=== PATIENT | male | born 1945 | race Caucasian/White ===

== ENCOUNTER → 2019-05-01 | Outpatient (CLI) | payer MEDICARE ==
[2019-05-01 16:04] LABS: HGB 11.2 gm/dL (13.0-17.5); MCH 23.1 pg (25.0-35.0); MCHC 31.2 g/dL (31.0-37.0); MCV 74.2 fL (80.0-100.0); Mean Platelet Volume 7.9; Microcytosis Slight; Platelet Count 263 k/uL (150-450); RBC 4.85 m/uL (4.30-5.90); RDW 15.2 % (11.5-15.5); WBC 5.8 k/uL (3.8-10.6)
[2019-05-01 16:12] LABS: ALT 25 U/L (21-72); AST 30 U/L (17-59); African American GFR (CKD) 78 (>60 ml/min/1.73 sqM); Albumin 4.4 g/dL (3.5-5.0); Albumin/Globulin Ratio 1.5; Alkaline Phosphatase 74 U/L (38-126); Anion Gap 7 mmol/L; Blood Urea Nitrogen 15 mg/dL (9-20); Calcium 9.5 mg/dL (8.4-10.2); Carbon Dioxide 27 mmol/L (22-30); Chloride 104 mmol/L (98-107); Glucose 92 mg/dL (74-99); LDH 404 U/L (313-618); Magnesium 2.1 mg/dL (1.6-2.3); Non-African American GFR(CKD) 67 (>60 ml/min/1.73 sqM); Potassium 4.4 mmol/L (3.5-5.1); Sodium 138 mmol/L (137-145); Total Bilirubin 0.5 mg/dL (0.2-1.3); Total Protein 7.4 g/dL (6.3-8.2)
[2019-05-01 16:31] LABS: Creatine Kinase MB 2.4 ng/mL (0.0-2.4)
--- NOTE | 2019-05-01 16:36 | XR ---
EXAMINATION TYPE: XR chest 2V, XR ribs 4 views LT DATE OF EXAM: 05/01/2019 COMPARISON: Chest 09/11/2014 HISTORY: 73-year-old male with chest pain and cough, mid lateral rib pain from fall 2 weeks ago. FINDINGS: Chest: Median sternotomy wires post-CABG clips. Heart normal size. Aorta and pulmonary vasculature within no rmal limits. Mild interstitial prominence is unchanged. No consolidation or pleural effusion. Left RIBS: No displaced left rib fracture. IMPRESSION: Chronic changes without acute cardiopulmonary process. No displaced left rib fracture seen.
[2019-05-01 17:04] LABS: Troponin I 0.012 ng/mL (0.000-0.034)
== END | disposition home or self-care (01) ==
LOC: LABWHC1 15:43
PROVIDERS: ATTEND Family Medicine
DX: R07.9 Chest pain, unspecified (principal); R05 Cough
CPT/HCPCS: 36415; 71046; 80053; 82553; 83615; 83735; 84484; 85027; 85379

== ENCOUNTER → 2021-01-22 | Outpatient (CLI) | payer MEDICARE ==
--- NOTE | 2021-01-22 10:27 | XR ---
EXAMINATION TYPE: XR chest 2V DATE OF EXAM: 01/22/2021 COMPARISON: 05/01/2019 HISTORY: Shortness of breath TECHNIQUE: Frontal and lateral views of the chest are obtained. FINDINGS: Scattered senescent parenchymal changes noted. Hyperinflation compatible with COPD. No evidence for infiltrate. No evidence for atelectasis. Focal eventration left hemidiaphragm unchang ed. Heart size is stable. Mediastinal structures are stable and grossly unremarkable. No evidence for hilar prominence. Degenerative changes dorsal spine. IMPRESSION: 1. No evidence for acute pulmonary disease.
--- NOTE | 2021-01-22 10:41 | XR ---
Right shoulder HISTORY: Pain 3 views of the right shoulder. Bone mineralization is reduced. Distal acromion is downturned, arthropathy is present at the acromioc lavicular joint. There is no fracture or dislocation evident. Right lung apex as visualized is normal . Patient is post median sternotomy. impression: Acromioclavicular joint arthropathy, correlate for impingement, shoulder MRI may be of be nefit.
== END | disposition home or self-care (01) ==
LOC: RADXRMAIN 09:47
PROVIDERS: ATTEND Family Medicine
DX: R06.02 Shortness of breath (principal); M19.011 Primary osteoarthritis, right shoulder
CPT/HCPCS: 71046

== ENCOUNTER → 2021-09-16 | Outpatient (CLI) | payer MEDICARE ==
[2021-09-16 14:43] LABS: HCT 38.8 % (39.6-50.0); HGB 11.6 g/dL (13.0-17.0); MCHC 29.9 g/dL (32.0-37.0); MCV 73.5 fL (80.0-97.0); Mean Platelet Volume 12.4 fL (9.5-12.2); NRBC Per 100 WBC 0 /100 WBCS (0.0-0.0); Platelet Count 304 X 10*3/uL (140-440); RBC 5.28 X 10*6/uL (4.40-5.60); RDW 15.9 % (11.5-14.5); WBC 9.25 X 10*3/uL (4.50-10.00)
[2021-09-16 16:59] LABS: African American GFR (CKD) 75.7 (60.0-200.0); Anion Gap 13.9 mmol/L (10.00-18.00); BUN/Creat Ratio 13.27 Ratio (12.00-20.00); Blood Urea Nitrogen 14.6 mg/dL (9.0-27.0); Calcium 9.2 mg/dL (8.7-10.3); Carbon Dioxide 21.5 mmol/L (20.0-27.5); Non-African American GFR(CKD) 65.3 (60.0-200.0); Potassium 4.1 mmol/L (3.5-5.5)
== END | disposition home or self-care (01) ==
LOC: LABWHC1 08:20
PROVIDERS: ATTEND Internal Medicine Interventional Cardiology
DX: D64.9 Anemia, unspecified (principal)
CPT/HCPCS: 36415; 80048; 85027

== ENCOUNTER → 2024-04-09 | Outpatient (CLI) | payer MEDICARE ==
--- NOTE | 2024-04-09 15:21 | XR ---
EXAMINATION TYPE: XR chest 2V DATE OF EXAM: 04/09/2024 2:38 PM COMPARISON: Chest radiographs from 01/22/2021. CLINICAL INDICATION: Male, 78 years old with history of J44.1; PHH TECHNIQUE: XR chest 2V Frontal and lateral views of the chest. FINDINGS: Lungs/Pleura: There is flattening of the diaphragm with increased lucency of the lungs. No evidence o f pneumothorax, pleural effusion or focal consolidation. Pulmonary vascularity: Unremarkable. Heart/mediastinum: Cardiomediastinal silhouette is unremarkable. Musculoskeletal: No acute osseous pathology. IMPRESSION: 1. No acute cardiopulmonary disease process. 2. COPD changes. [facility], , 04/09/2024 3:19 PM
== END | disposition home or self-care (01) ==
LOC: RADXRMAIN 14:20
DX: J44.1 Chronic obstructive pulmonary disease with (acute) exacerbation (principal)
CPT/HCPCS: 71046

== ENCOUNTER → 2024-04-20 | Day surgery (SDC) | payer MEDICARE ==
[2024-04-19 10:18] VITALS: BMI 26.2
[~2024-04-20] MED LIST: ALPRAZolam 0.25 MG TAB PO PRN; ASPIRIN 325 MG TAB PO ONE; ATORVASTATIN 80 MG TAB PO ONE; NITROGLYCERIN SL TABS 0.4 MG TAB SUBLINGUAL PRN; RX INFO: IV CONTRAST WAS GIVEN 1 EACH MISC MISCELLANE PRN; SODIUM CHLORIDE 0.9% 1,000 ML IV SCH; SODIUM CHLORIDE 0.9% 1,000 ML in EMPTY BAG 1 BAG IV SCH
[2024-04-20] MEDS: ALPRAZolam 0.5 MG TAB PO PRN (06:35)
[2024-04-20] MEDS: IV FLUID CONTINUATION 1,000 ML IV ONE (06:39)
[2024-04-20 06:54] LABS: Basophils # (A) 0.1 k/uL (0-0.2); Basophils % (A) 1 %; Eosinophils # (A) 0.3 k/uL (0-0.7); Eosinophils % (A) 3 %; HCT 38.9 % (39.0-53.0); HGB 12.2 gm/dL (13.0-17.5); Hypochromasia Slight; Lymphocytes % (A) 26 %; MCH 22.7 pg (25.0-35.0); MCHC 31.3 g/dL (31.0-37.0); MCV 72.6 fL (80.0-100.0); Mean Platelet Volume 7.8; Microcytosis Moderate; Monocytes # (A) 0.5 k/uL (0-1.0); Monocytes % (A) 7 %; Neutrophils # (A) 4.7 k/uL (1.3-7.7); Neutrophils % (A) 61 %; Platelet Count 255 k/uL (150-450); RBC 5.35 m/uL (4.30-5.90); RDW 15.9 % (11.5-15.5); WBC 7.7 k/uL (3.8-10.6)
[2024-04-20 07:05] VITALS: TEMP 98.3
[2024-04-20 07:06] VITALS: RESP 18
[2024-04-20 07:23] LABS: African American GFR (CKD) 64 (>60 ml/min/1.73 sqM); Anion Gap 8 mmol/L; Blood Urea Nitrogen 15 mg/dL (9-20); Calcium 9.6 mg/dL (8.4-10.2); Carbon Dioxide 24 mmol/L (22-30); Chloride 106 mmol/L (98-107); Glucose 110 mg/dL (74-99); Non-African American GFR(CKD) 55 (>60 ml/min/1.73 sqM); Potassium 4.4 mmol/L (3.5-5.1); Sodium 138 mmol/L (137-145)
[2024-04-20] MEDS: LIDOCAINE 1% INJ 10MG/ML (20 ML MDV) SQ ONE (07:39)
[2024-04-20] MEDS: MIDAZOLAM 2 MG/2 ML VIAL IVP ONE (07:39)
[2024-04-20] MEDS: IOPAMIDOL-300 100ML BTL INJ ONE (07:56)
[2024-04-20] MEDS: HEPARIN SODIUM,PORCINE (1 ML) 2,500 UNIT in SODIUM CHLORIDE 0.9% 250 ML IRRIGATION PRN (07:57)
[2024-04-20] MEDS: HEPARIN SODIUM,PORCINE 10,000 UNIT in SODIUM CHLORIDE 0.9% 1,000 ML IRRIGATION PRN (07:57)
--- NOTE | 2024-04-20 08:19 | P.PCN ---
Date of Procedure: 04/20/24 Operative Findings: CARDIAC CATHETERIZATION PERFORMING PHYSICIAN: Teo Guerra MD, RPVI PROCEDURE PERFORMED: 1. Selective right and left coronary angiogram and MONTANO to LAD angiogram and SVG to diagonal angiogram and SVG to OM angiogram and SVG to PDA angiogram 2. Left heart catheterization 3. Ultrasound-guided access of the right common femoral artery and selective right common femoral artery angiogram INDICATION: Chest discomfort and shortness of breath concerning for unstable angina in this 78-year-old gentleman who is known to have CAD with prior coronary artery there was grafting in 2013 COMPLICATION: None APPROACH: Right common femoral artery LEVEL OF SEDATION: Moderate with sedation in length of 23 minutes PROCEDURE DESCRIPTION: After obtaining an informed consent, the patient was brought to cardiac forestry farm laborer. Local anesthesia was performed using lidocaine subcutaneously. The right common femoral artery was cannulated using Seldinger technique, the guidewire passed easily, following that we advanced a 6 Moroccan sheath dilator assembly, the wire and dilator were removed and sheath was flushed. Selective right and left coronary angiogram using a 6-Moroccan JR4 and JL catheters. Following that we did left heart catheterization using 6-Moroccan pigtail catheter. The MONTANO to LAD angiogram was performed using an IM catheter. The SVG to diagonal and SVG to OM angiogram performed using JR4 catheter. The SVG to PDA angiogram was performed using multipurpose catheter The procedure was completed there was no complication. SELECTIVE CORONARY ANGIOGRAM: The right coronary artery: Large-caliber vessel and a dominant vessel and calcified vessel with severe disease involving the midportion and occluded PDA Left main: Calcified with critical disease The left circumflex: Large caliber vessel nondominant vessel with severe disease involving the midportion The left anterior descending artery: Is occluded in the midportion Coronary artery bypasses The MONTANO to LAD is patent The graft to diagonal is patent The graft to OM is patent The graft to PDA is patent HEMODYNAMICS: The LVEDP was 14 mmHg and about 10 mm peak to peak gradient across aortic valve CONCLUSION: 1. 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 Patent MONTANO to LAD and patent graft to diagonal and patent graft to OM and patent graft to PDA of RCA 3. Normal left-sided filling pressure and 10 mm break to peak gradient across aortic valve POSTPROCEDURE MANAGEMENT: Medical treatment
[2024-04-20 19:09] VITALS: BP 122/59; PULSE 86
== END ==
LOC: CATHCVL 05:45
PROVIDERS: ATTEND Internal Medicine Interventional Cardiology
DX: I25.10 Atherosclerotic heart disease of native coronary artery without angina pectoris (principal); I77.819 Aortic ectasia, unspecified site; I38 Endocarditis, valve unspecified; I10 Essential (primary) hypertension; E78.5 Hyperlipidemia, unspecified; F17.210 Nicotine dependence, cigarettes, uncomplicated; Z95.1 Presence of aortocoronary bypass graft; Z79.02 Long term (current) use of antithrombotics/antiplatelets; Z79.899 Other long term (current) drug therapy
CPT/HCPCS: 93459; 80048; 85025; J2250; J1644 ×2; J2003; Q9967

== ENCOUNTER → 2024-05-07 | Outpatient (CLI) | payer MEDICARE ==
[2024-05-07 14:07] LABS: African American GFR (CKD) 67 (>60 ml/min/1.73 sqM); Blood Urea Nitrogen 25 mg/dL (9-20); Non-African American GFR(CKD) 58 (>60 ml/min/1.73 sqM)
--- NOTE | 2024-05-07 15:06 | CT ---
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 MIP images are created and reviewed. CT DLP: 683.[address] CTDI: mGy Automated exposure control for dose reduction was used. FINDINGS: There are moderate emphysematous changes. There are scattered focal areas of abnormal reticular density in the right upper lobe. There is diffu se scattered reticular nodular densities in the right lung base. There is groundglass opacity in the left lung base in addition to scattered reticular nodular densities. There is no pleural effusion or pneumothorax. The great vessels the chest are normal. There is no aneurysm of the ascending thoracic aorta which is 3.85 cm in greatest dimension. There is no mediastinal, hilar or axillary adenopathy. Limited scans the upper abdomen reveals no gross abnormality. No focal destructive osseous. IMPRESSION: 1. No thoracic aortic aneurysm. 2. Bilateral infiltrates as described above. These findings are nonspecific and could be chronic or a cute nature. There is no prior study for comparison. Short-term follow-up is recommended in 3 months to assess stability. 3. Moderate emphysematous changes. [facility], , 05/07/2024 3:04 PM
== END | disposition home or self-care (01) ==
LOC: RADCTMAIN 13:38
PROVIDERS: ATTEND Internal Medicine Interventional Cardiology
DX: I71.20 Thoracic aortic aneurysm, without rupture, unspecified (principal); R06.02 Shortness of breath; R91.8 Other nonspecific abnormal finding of lung field; J43.9 Emphysema, unspecified
CPT/HCPCS: 82565; 84520; 71275; 36415; Q9967